=== PATIENT | female | born 1995 | race Asian ===

== ENCOUNTER 2017-12-27 13:16 | Emergency (ER) | payer OTHER ==
[2017-12-27] MEDS ORDERED: NS 1,000 ML IV ONE ×2 (14:32)
[2017-12-27] MEDS ORDERED: ONDANSETRON 4 MG/2 ML VIAL IVP ONE (14:32)
[2017-12-27 15:05] LABS: PLATELET COUNT 226 10^3/uL (150-400)
--- NOTE | 2017-12-27 16:47 | EDPHY ---
H & P Stated Complaint: NV, syncope Time Seen by Provider: 12/27/17 13:48 HPI/ROS: CHIEF COMPLAINT: Vomiting HISTORY OF PRESENT ILLNESS: This is a generally healthy 22-year-old student who comes to the emergency room after experiencing nausea and vomiting with occasional diarrhea over the past 2 days. This morning she had an episode of syncope. She did not injure herself. She does not feel lightheaded or dizzy. She denies fever, abdominal pain, dysuria or other urinary symptoms. She continues with nausea and has been afraid to try to eat or drink. REVIEW OF SYSTEMS: A ten system review of systems was performed and is negative with the exception of the items mentioned in the HPI. Past medical history: PCOS Past surgical history: Negative Social history: She is a student. She does not use alcohol or tobacco. She does not have a primary care provider. General Appearance: Alert. Vital signs reviewed. Eyes: Pupils equal and round, no conjunctival injection, no discharge. Anicteric. ENT, Mouth: Mucous membranes are moist, no oropharyngeal erythema or edema. Neck: No lymphadenopathy, supple. Respiratory: Lungs are clear to auscultation; no wheezes, rales, or rhonchi. Cardiovascular: Regular rate and rhythm; no murmur, rub, or gallop. Gastrointestinal: Abdomen is soft and nontender, no masses or organomegaly, bowel sounds normal. Skin: Warm and dry, no rashes on exposed skin, normal color. Back: Nontender to palpation over the thoracolumbar spine. No CVAT. Extremities: No lower extremity edema, no calf tenderness or swelling. Neurological: Alert and oriented. Moving all four extremities easily and equally. Psychiatric: Normal affect. - Personal History LMP (Females 10-55): 8-14 Days Ago Current Tetanus Diphtheria and Acellular Pertussis (TDAP): Yes - Medical/Surgical History Hx Asthma: No Hx Chronic Respiratory Disease: No Hx Diabetes: No Hx Cardiac Disease: No Hx Renal Disease: No Hx Cirrhosis: No Hx Alcoholism: No Hx HIV/AIDS: No Hx Splenectomy or Spleen Trauma: No Other PMH: none - Social History Smoking Status: Current every day smoker Constitutional: Initial Vital Signs Temperature (C) 36.9 C 12/27/17 13:19 Heart Rate 89 12/27/17 13:19 Respiratory Rate 16 12/27/17 13:19 Blood Pressure 134/89 H 12/27/17 13:19 O2 Sat (%) 94 12/27/17 13:19 O2 Delivery Mode Room Air Allergies/Adverse Reactions: No Known Allergies Allergy (Verified 04/11/13 12:25) Home Medications: Medication Instructions Recorded Metformin HCl 12/27/17 Medical Decision Making ED Course/Re-evaluation: Nausea and vomiting over the past 2 days. She has had a couple of episodes of diarrhea, none today. She has not been able to eat or drink during this time. In the emergency department she received Zofran 4 mg IV and 2 L IV fluid. She felt significantly better with this treatment. She passed a p.o. Challenge. She was discharged home in improved condition. On reexamination her abdomen remains soft and nontender. I do not suspect an intra-abdominal infection such as appendicitis. She does not have abdominal tenderness and I am not concerned about the possibility of cholecystitis. She has no urinary symptoms so pyelonephritis and urinary tract infection are eliminated. I suspect that she has had a viral gastroenteritis. I believe that she had a syncopal episode because of dehydration. test is negative and I am not concerned about the possibility of an ectopic . - Data Points Laboratory Results: Laboratory Results 12/27/17 14:55 12/27/17 12/27/17 14:55 14:55 WBC 7.47 10^3/uL 10^3/uL (3.80-9.50) RBC 4.74 10^6/uL 10^6/uL (4.18-5.33) Hgb 13.6 g/dL g/dL (12.6-16.3) Hct 40.1 % % (38.0-47.0) MCV 84.6 fL fL (81.5-99.8) MCH 28.7 pg pg (27.9-34.1) MCHC 33.9 g/dL g/dL (32.4-36.7) RDW 14.5 % % (11.5-15.2) Plt Count 226 10^3/uL 10^3/uL (150-400) MPV 10.2 fL fL (8.7-11.7) Neut % (Auto) 60.2 % % (39.3-74.2) Lymph % (Auto) 31.6 % % (15.0-45.0) Mcmullen % (Auto) 5.6 % % (4.5-13.0) Eos % (Auto) 2.0 % % (0.6-7.6) Baso % (Auto) 0.3 % % (0.3-1.7) Nucleat RBC Rel Count 0.0 % % (0.0-0.2) Absolute Neuts (auto) 4.50 10^3/uL 10^3/uL (1.70-6.50) Absolute Lymphs (auto) 2.36 10^3/uL 10^3/uL (1.00-3.00) Absolute Monos (auto) 0.42 10^3/uL 10^3/uL (0.30-0.80) Absolute Eos (auto) 0.15 10^3/uL 10^3/uL (0.03-0.40) Absolute Basos (auto) 0.02 10^3/uL 10^3/uL (0.02-0.10) Absolute Nucleated RBC 0.00 10^3/uL 10^3/uL (0-0.01) Immature Gran % 0.3 % % (0.0-1.1) Immature Gran # 0.02 10^3/uL 10^3/uL (0.00-0.10) Beta HCG, Qual NEGATIVE Medications Given: Discontinued Medications Sodium Chloride (Ns) 1,000 mls @ 0 mls/hr IV EDNOW ONE; Wide Open PRN Reason: Protocol Stop: 12/27/17 14:33 Last Admin: 12/27/17 15:12 Dose: 1,000 mls Sodium Chloride (Ns) 1,000 mls @ 0 mls/hr IV EDNOW ONE; Wide Open PRN Reason: Protocol Stop: 12/27/17 14:33 Last Admin: 12/27/17 15:12 Dose: 1,000 mls Ondansetron HCl (Zofran) 4 mg IVP EDNOW ONE Stop: 12/27/17 14:33 Last Admin: 12/27/17 15:13 Dose: 4 mg Departure - Departure Disposition: Home, Routine, Self-Care Clinical Impression: Vomiting Qualifiers: Vomiting type: unspecified Vomiting Intractability: non-intractable Nausea presence: with nausea Qualified Code(s): R11.2 - Nausea with vomiting, unspecified Condition: Good Instructions: Acute Nausea and Vomiting (ED) Additional Instructions: [place] foods tonight. Referrals: Baldo Coto MD [Medical Doctor] - As per Instructions Stand Alone Forms: School Excuse
[2017-12-27 16:53] VITALS: BP 125/84
== END 2017-12-27 16:53 | disposition home or self-care (01) ==
DX: R11.2 Nausea with vomiting, unspecified (principal); E86.9 Volume depletion, unspecified; F17.200 Nicotine dependence, unspecified, uncomplicated
CPT/HCPCS: 96374; J2405